=== PATIENT | female | born 1985 | race Caucasian/White ===

== ENCOUNTER 2017-04-19 16:46 | Emergency (ER) | payer MEDICAID ==
[~2017-04-19] VITALS: Ht 165.1 cm; Wt 76.0 kg
[2017-04-19 16:47] VITALS: BP 173/82; PULSE 84; RESP 14; TEMP 98.4; O2SAT 98
[2017-04-19] MEDS ORDERED: PENI250T PO (18:27)
[2017-04-19] MEDS ORDERED: IBUP800T23 PO (18:27)
[2017-04-19] MEDS ORDERED: DIFL150T PO (18:27)
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
== END 2017-04-19 18:38 | disposition home or self-care (01) ==
LOC: NEPK 16:46
DX: K04.7 Periapical abscess without sinus (principal); K02.9 Dental caries, unspecified; Z88.0 Allergy status to penicillin
CPT/HCPCS: 99284